=== PATIENT | male | born 1985 | race Caucasian/White ===

== ENCOUNTER 2016-08-19 01:01 | Emergency (ER) | payer SELFPAY ==
[~2016-08-19] VITALS: Ht 200.7 cm; Wt 54.4 kg
[2016-08-19 01:22] VITALS: BP 129/73
== END 2016-08-19 04:42 | disposition left against medical advice (07) ==
LOC: M ED 03:44
DX: S01.91XA Laceration without foreign body of unspecified part of head, initial encounter (principal); W22.8XXA Striking against or struck by other objects, initial encounter; Y92.098 Other place in other non-institutional residence as the place of occurrence of the external cause; Y93.89 Activity, other specified; Y99.8 Other external cause status

== ENCOUNTER 2016-11-23 10:32 | Emergency (ER) | payer SELFPAY ==
[~2016-11-23] VITALS: Ht 172.7 cm; Wt 59.0 kg
[2016-11-23] MEDS ORDERED: NORCO, ANEXSIA 5/325MG TABLET (HYDROcodone/ACETAMINOPHEN) PO ONE (10:45)
[2016-11-23] MEDS ORDERED: ADACEL/BOOSTRIX VACCINE (DIPHTH/PERTUSS/ACELL/TETANUS)0.5ML SYR (90715) IM ONE (10:45)
[2016-11-23 10:47] VITALS: BP 109/66
--- NOTE | 2016-11-23 11:16 | REP ---
CT Head without contrast HISTORY: Trauma COMPARISON: 08/19/2016 There is no intraparenchymal hemorrhage, acute infarct, mass or midline shift. The ventricular system is normal in appearance. There is no extra cerebral collection. There is no fracture. The visualized sinuses are clear. IMPRESSION: There is no intracranial lesion. Signed by Simon Turcios MD 11/23/2016 11:07 A
--- NOTE | 2016-11-23 11:19 | REP ---
CT cervical spine without contrast HISTORY: Trauma COMPARISON: 11/24/2015 There is no acute fracture or subluxation. There is no disc bulge or herniation. The spinal canal and neural foramina are patent. The intervertebral discs and vertebral bodies are normal in height. IMPRESSION: There is no acute fracture or subluxation. Signed by Simon Turcios MD 11/23/2016 11:11 A
--- NOTE | 2016-11-23 11:38 | REP ---
RIGHT FOREARM, TWO VIEWS: There is no evidence of an acute fracture, dislocation or intrinsic bone disease. IMPRESSION: No fracture or dislocation. Signed by Ritchie Rico MD 11/23/2016 05:21 P
--- NOTE | 2016-11-23 11:38 | REP ---
RIGHT ELBOW, FOUR VIEWS: There is no evidence of an acute fracture, dislocation or intrinsic bone disease. IMPRESSION: No fracture or dislocation. Signed by Ritchie Rico MD 11/23/2016 05:20 P
--- NOTE | 2016-11-23 11:40 | REP ---
RIGHT HAND: Four views of the right hand are performed. No acute fracture or dislocation is seen. There is an old fracture of the ulnar styloid process. The joint spaces appear unremarkable. IMPRESSION: Old fracture ulnar styloid process with out evidence of acute fracture. Signed by Ritchie Rico MD 11/23/2016 05:21 P
== END 2016-11-23 12:10 | disposition left against medical advice (07) ==
LOC: M ED 11:18
DX: S00.81XA Abrasion of other part of head, initial encounter (principal); V13.4XXA Pedal cycle driver injured in collision with car, pick-up truck or van in traffic accident, initial encounter; Y92.410 Unspecified street and highway as the place of occurrence of the external cause; Y93.55 Activity, bike riding; Y99.8 Other external cause status

== ENCOUNTER 2016-11-25 13:44 | Emergency (ER) | payer SELFPAY ==
[~2016-11-25] VITALS: Ht 167.6 cm; Wt 59.1 kg
[2016-11-25 13:47] VITALS: BP 116/94
== END 2016-11-25 14:55 | disposition left against medical advice (07) ==
LOC: M ED 14:51
DX: S09.90XA Unspecified injury of head, initial encounter (principal); W19.XXXA Unspecified fall, initial encounter; Y92.89 Other specified places as the place of occurrence of the external cause; Y93.89 Activity, other specified; Y99.8 Other external cause status; Z53.29 Procedure and treatment not carried out because of patient's decision for other reasons

== ENCOUNTER 2016-11-26 07:09 | Emergency (ER) | payer SELFPAY | END 2016-11-26 08:03 | disposition left against medical advice (07) | LOC: M ED 07:32 | DX: R51 Headache (principal); Z53.29 Procedure and treatment not carried out because of patient's decision for other reasons ==

== ENCOUNTER 2016-12-10 06:12 | Emergency (ER) | payer SELFPAY ==
[~2016-12-10] VITALS: Ht 170.2 cm; Wt 59.0 kg
[2016-12-10] MEDS ORDERED: FIORICET TAB PO ONE (07:30)
--- NOTE | 2016-12-10 07:53 | REP ---
Clinical: Headache with recent trauma . Comparison: 11/23/2016 . Findings: The ventricles, sulci, and cisterns are normal in position and appearance. Rico-white differentiation is maintained. No acute intracranial hemorrhage, mass/mass effect, pathology or trauma/injury. No evidence for acute infarction. No extra-axial fluid collection. Calvarium is intact. Paranasal sinuses and mastoid air cells are clear. Impression: Normal noncontrast head CT. No evidence for acute intracranial pathology or trauma/injury. Signed by Cristian Underwood MD 12/10/2016 07:45 A
[2016-12-10 07:56] VITALS: BP 107/66
[2016-12-10] MEDS ORDERED: FIOR1CAP PO (08:09)
== END 2016-12-10 08:19 | disposition home or self-care (01) ==
LOC: M ED 06:12
DX: S09.90XA Unspecified injury of head, initial encounter (principal); F51.5 Nightmare disorder; F17.210 Nicotine dependence, cigarettes, uncomplicated; W22.09XA Striking against other stationary object, initial encounter; Y92.89 Other specified places as the place of occurrence of the external cause; Y93.89 Activity, other specified; Y99.9 Unspecified external cause status

== ENCOUNTER 2018-12-31 10:48 | Emergency (ER) | payer MEDICAID, SELFPAY ==
[~2018-12-31] VITALS: Ht 170.2 cm; Wt 65.9 kg
[~2018-12-31 10:48] MED LIST: FIOR1CAP PO
[2018-12-31] MEDS ORDERED: NS 1,000 ML IV ONE (11:30)
[2018-12-31 11:55] LABS: BASO % 0.2 % (0.0-1.0); EOS # 0.2 10^3/uL (0.0-0.50); EOS % 1.4 % (0.0-3.0); HEMATOCRIT 39.4 % (42.0-52.0); HEMOGLOBIN 13.4 g/dl (13.5-17.5); LYMPH % 6.5 % (24.0-44.0); MEAN CORPUSCULAR HEMOGLOBIN 32.1 pg (27.0-33.0); MEAN CORPUSCULAR VOLUME 94.3 fl (80.0-96.0); MONO # 1.1 10^3/uL (0.0-0.8); MONO % 7.6 % (0.0-5.0); NEUTROPHILS # 12.4 10^3/uL (1.8-7.7); NEUTROPHILS % 83.9 % (36.0-66.0); PLATELET COUNT, AUTOMATED 232 10^3/uL (150-450); RED BLOOD COUNT 4.18 10^6/uL (4.30-6.10); WHITE BLOOD COUNT 14.8 10^3/uL (4.0-10.0)
[2018-12-31 12:14] LABS: BLOOD UREA NITROGEN 13 MG/DL (7-18); C REACTIVE PROTEIN QUANTITATIV 9.19 MG/DL (0.00-0.30); CARBON DIOXIDE LEVEL 26 MEQ/L (21-32); CHLORIDE LEVEL 108 MEQ/L (98-107); CREATININE FOR GFR 0.73 MG/DL (0.70-1.30); GLOMERULAR FILTRATION RATE > 60.0 (>60); GLUCOSE, FASTING 117 MG/DL (70-100); POTASSIUM SERUM 4.1 MEQ/L (3.5-5.1); SODIUM LEVEL 140 MEQ/L (136-145)
[2018-12-31 12:40] LABS: ERYTHROCYTE SEDIMENTATION RATE 49 mm/hr (0-15)
[2018-12-31] MEDS ORDERED: ISOVUE-370 76% 100ML VIAL (Q9967) As Ordered ONE (12:51)
--- NOTE | 2018-12-31 14:37 | REP ---
CT MAXILLOFACIAL REGION WITH IV CONTRAST: CT maxillofacial region performed in the axial plane following the intravenous administration of 75 mL Isovue 370. Sagittal and coronal reconstruction images are performed. Left facial soft tissues demonstrate diffuse edematous change and findings of inflammation and infection. Multiple locules of air and fluid are seen at the level of the inferior maxilla. There is a dominant focal 2 cm air and fluid collection along the lateral margin of the left maxilla at its inferior aspect consistent with an abscess. The inflammation extends into the left submandibular region. The superior extent is in the left periorbital region. There is no intraorbital extension. There is mild mucosal thickening in the left maxillary and ethmoid sinuses. No air fluid levels are seen in the paranasal sinuses. The mastoid air cells are clear. Globes are intact. There is mild reactive adenopathy on the left in the region of the posterior inferior mandible and along the carotid and jugular vessels. Airway is widely patent. There is no osseous destruction. IMPRESSION: Left facial cellulitis extending from the left orbit into the left submandibular region. There appear to be phlegmonous changes with tiny locules of air. There is one dominant locule of air and fluid consistent with a focal abscess at the lateral inferior margin of the left maxilla measuring 2 cm in diameter. There is mild reactive adenopathy in the left submandibular region and adjacent jugular chain. There is mild mucosal thickening in the left maxillary and ethmoid sinuses. Electronically Signed by Ritchie Rico MD 01/01/2019 11:08 A
[2018-12-31] MEDS ORDERED: CLINDAMYCIN 900 MG in APPROPRIATE DILUENT 1 EA IV ONE (15:00)
[2018-12-31] MEDS ORDERED: CLIN150C14 PO (15:08)
[2018-12-31 16:11] VITALS: BP 129/74
== END 2018-12-31 16:18 | disposition home or self-care (01) ==
LOC: M ED 10:48
DX: K04.7 Periapical abscess without sinus (principal); K02.9 Dental caries, unspecified; R68.84 Jaw pain; K08.89 Other specified disorders of teeth and supporting structures; Z72.0 Tobacco use; Z53.21 Procedure and treatment not carried out due to patient leaving prior to being seen by health care provider
CPT/HCPCS: 70487; 80048; 85025; 85652; 86140; 87040; 96360; 96361; 96365; 99284; Q9967

== ENCOUNTER 2020-10-26 00:18 | Emergency (ER) | payer MEDICAID, OTHER ==
[~2020-10-26] VITALS: Ht 172.7 cm; Wt 68.2 kg
[~2020-10-26 00:18] MED LIST changes: +CLIN150C15 PO
[2020-10-26 01:24] LABS: HEMATOCRIT 37.2 % (42.0-52.0); HEMOGLOBIN 12.6 g/dl (13.5-17.5); MEAN CORPUSCULAR HEMOGLOBIN 31.8 pg (27.0-33.0); MEAN CORPUSCULAR HGB CONC 33.9 g/dl (32.0-36.5); MEAN CORPUSCULAR VOLUME 93.9 fl (80.0-96.0); PLATELET COUNT, AUTOMATED 325 10^3/uL (150-450); RED BLOOD COUNT 3.96 10^6/uL (4.30-6.10)
[2020-10-26 01:50] LABS: ACETAMINOPHEN LEVEL < 2.0 UG/ML (10.0-30.0); ALBUMIN 4.1 GM/DL (3.2-5.2); ALT/SGPT 50 U/L (12-78); BILIRUBIN,DIRECT 0.2 MG/DL (0.0-0.2); BILIRUBIN,TOTAL 0.5 MG/DL (0.2-1.0); BLOOD UREA NITROGEN 20 MG/DL (7-18); CALCIUM LEVEL 9.1 MG/DL (8.5-10.1); CARBON DIOXIDE LEVEL 25 MEQ/L (21-32); CHLORIDE LEVEL 105 MEQ/L (98-107); CREATININE FOR GFR 0.94 MG/DL (0.70-1.30); ETHYL ALCOHOL (ETHANOL) 0.004 % (0.000-0.010); GLOMERULAR FILTRATION RATE > 60.0 (>60); GLUCOSE, FASTING 141 MG/DL (70-100); POTASSIUM SERUM 3.9 MEQ/L (3.5-5.1); SALICYLATE LEVEL < 1.7 MG/DL (5.0-30.0); SODIUM LEVEL 139 MEQ/L (136-145)
[2020-10-26 03:56] LABS: AMPHETAMINES LEVEL URINE POSITIVE (NEGATIVE); BARBITURATES URINE NEGATIVE (NEGATIVE); BENZODIAZEPINES URINE NEGATIVE (NEGATIVE); CANNABINOIDS URINE POSITIVE (NEGATIVE); COCAINE METABOLITE URINE NEGATIVE (NEGATIVE); METHADONE URINE NEGATIVE (NEGATIVE); OPIATES URINE NEGATIVE (NEGATIVE); PHENCYCLIDINE URINE NEGATIVE (NEGATIVE)
[2020-10-26] MEDS ORDERED: ACETAMINOPHEN TAB 650MG DOSE (2X325MG) PO ONE (08:55)
[2020-10-26 11:05] VITALS: BP 124/82
== END 2020-10-26 11:11 | disposition home or self-care (01) ==
LOC: M ED 00:18
DX: Z04.6 Encounter for general psychiatric examination, requested by authority (principal); F19.929 Other psychoactive substance use, unspecified with intoxication, unspecified; F17.210 Nicotine dependence, cigarettes, uncomplicated

== ENCOUNTER 2021-08-17 12:21 | Emergency (ER) | payer OTHER ==
[~2021-08-17] VITALS: Ht 172.7 cm; Wt 63.6 kg
[~2021-08-17 12:21] MED LIST changes: -CLIN150C15 PO; +CLIN150C17 PO
[2021-08-17 13:08] VITALS: BP 149/89
== END 2021-08-17 13:09 | disposition home or self-care (01) ==
LOC: M ED 12:21
DX: G89.29 Other chronic pain (principal); M79.671 Pain in right foot; M79.672 Pain in left foot

== ENCOUNTER 2021-08-18 13:21 | Emergency (ER) | payer OTHER ==
[~2021-08-18] VITALS: Ht 167.6 cm; Wt 81.8 kg
[2021-08-18 13:55] LABS: HEMATOCRIT 39.5 % (42.0-52.0); HEMOGLOBIN 13.7 g/dl (13.5-17.5); MEAN CORPUSCULAR HEMOGLOBIN 30.2 pg (27.0-33.0); MEAN CORPUSCULAR HGB CONC 34.7 g/dl (32.0-36.5); MEAN CORPUSCULAR VOLUME 87.2 fl (80.0-96.0); PLATELET COUNT, AUTOMATED 302 10^3/uL (150-450); RED BLOOD COUNT 4.53 10^6/uL (4.30-6.10); WHITE BLOOD COUNT 10.1 10^3/uL (4.0-10.0)
[2021-08-18 14:17] LABS: AMPHETAMINES LEVEL URINE POSITIVE (NEGATIVE); BARBITURATES URINE NEGATIVE (NEGATIVE); BENZODIAZEPINES URINE NEGATIVE (NEGATIVE); CANNABINOIDS URINE POSITIVE (NEGATIVE); COCAINE METABOLITE URINE NEGATIVE (NEGATIVE); METHADONE URINE NEGATIVE (NEGATIVE); OPIATES URINE NEGATIVE (NEGATIVE); PHENCYCLIDINE URINE NEGATIVE (NEGATIVE)
[2021-08-18 14:34] LABS: ACETAMINOPHEN LEVEL < 2.0 UG/ML (10.0-30.0); ALBUMIN 4.4 GM/DL (3.2-5.2); ALT/SGPT 141 U/L (12-78); BILIRUBIN,DIRECT 0.2 MG/DL (0.0-0.2); BILIRUBIN,TOTAL 0.8 MG/DL (0.2-1.0); BLOOD UREA NITROGEN 21 MG/DL (7-18); CALCIUM LEVEL 9.2 MG/DL (8.5-10.1); CARBON DIOXIDE LEVEL 23 MEQ/L (21-32); CHLORIDE LEVEL 104 MEQ/L (98-107); CREATININE FOR GFR 0.95 MG/DL (0.70-1.30); ETHYL ALCOHOL (ETHANOL) < 0.003 % (0.000-0.010); GLOMERULAR FILTRATION RATE > 60.0 (>60); GLUCOSE, FASTING 95 MG/DL (70-100); POTASSIUM SERUM 3.7 MEQ/L (3.5-5.1); SALICYLATE LEVEL < 1.7 MG/DL (5.0-30.0); SODIUM LEVEL 137 MEQ/L (136-145); TOTAL PROTEIN 7.9 GM/DL (6.4-8.2)
[2021-08-18] MEDS ORDERED: ACETAMINOPHEN 325 MG TAB PO ONE (18:05)
[2021-08-18 19:00] LABS: RSV AMPLIFICATION NEGATIVE (NEGATIVE)
[2021-08-18] MEDS ORDERED: HOME MED LIST COMPLETE! XX SCH (19:20)
[2021-08-18] MEDS ORDERED: OLANZapine INTRAMUSCULAR 10MG VIAL IM ONE (19:40)
[2021-08-19 08:38] VITALS: BP 122/69
== END 2021-08-19 08:41 ==
LOC: M ED 13:21
DX: Z04.6 Encounter for general psychiatric examination, requested by authority (principal); F06.2 Psychotic disorder with delusions due to known physiological condition; E11.9 Type 2 diabetes mellitus without complications; Z79.4 Long term (current) use of insulin

== ENCOUNTER 2021-09-09 07:10 | Emergency (ER) | payer MEDICAID, OTHER ==
[~2021-09-09] VITALS: Ht 172.7 cm; Wt 61.8 kg
[2021-09-09 07:11] VITALS: BP 128/82
[2021-09-09] MEDS ORDERED: IBUPROFEN 800 MG TAB PO ONE (07:45)
== END 2021-09-09 08:17 | disposition home or self-care (01) ==
LOC: M ED 07:10
DX: S90.31XA Contusion of right foot, initial encounter (principal); V18.0XXA Pedal cycle driver injured in noncollision transport accident in nontraffic accident, initial encounter; Y92.410 Unspecified street and highway as the place of occurrence of the external cause; E11.9 Type 2 diabetes mellitus without complications; F17.210 Nicotine dependence, cigarettes, uncomplicated; F12.20 Cannabis dependence, uncomplicated

== ENCOUNTER → 2022-11-13 | Outpatient (CLI) | payer OTHER | LOC: M RAD 12:09 | PROVIDERS: ATTEND Surgery | DX: S22.41XA Multiple fractures of ribs, right side, initial encounter for closed fracture (principal); X58.XXXA Exposure to other specified factors, initial encounter; Y92.9 Unspecified place or not applicable; Y93.9 Activity, unspecified; Y99.9 Unspecified external cause status ==

== ENCOUNTER 2024-07-11 21:07 | Emergency (ER) | payer MEDICAID, OTHER, SELFPAY ==
[~2024-07-11] VITALS: Ht 170.2 cm; Wt 72.6 kg
[2024-07-11 21:26] VITALS: BP 175/113; TEMP 98.2; O2SAT 100
== END 2024-07-11 22:30 | disposition left against medical advice (07) ==
LOC: M ED 21:07
DX: Z53.21 Procedure and treatment not carried out due to patient leaving prior to being seen by health care provider (principal)

== ENCOUNTER 2024-07-22 23:43 | Emergency (ER) | payer SELFPAY ==
[~2024-07-22] VITALS: Ht 170.2 cm; Wt 61.5 kg
[2024-07-22 23:51] VITALS: TEMP 97.2
[2024-07-23] MEDS: ONDANSETRON 4MG 2ML VIAL IV PRN
[2024-07-23] MEDS: NS 500 ML IV ONE (00:17)
[2024-07-23 00:37] LABS: BASO % 0.3 % (0.0-1.0); EOS # 0.2 10^3/uL (0.0-0.5); EOS % 2.6 % (0.0-3.0); HEMATOCRIT 40.3 % (42.0-52.0); HEMOGLOBIN 13.5 g/dl (13.5-17.5); LYMPH # 1.8 10^3/uL (1.5-5.0); LYMPH % 26.8 % (24.0-44.0); MEAN CORPUSCULAR HEMOGLOBIN 30.9 pg (27.0-33.0); MEAN CORPUSCULAR HGB CONC 33.5 g/dl (32.0-36.5); MEAN CORPUSCULAR VOLUME 92.2 fl (80.0-96.0); MONO # 0.5 10^3/uL (0.0-0.8); MONO % 7.5 % (2.0-8.0); NEUTROPHILS # 4.3 10^3/uL (1.5-8.5); NEUTROPHILS % 62.7 % (36.0-66.0); PLATELET COUNT, AUTOMATED 318 10^3/uL (150-450); RED BLOOD COUNT 4.37 10^6/uL (4.30-6.10); WHITE BLOOD COUNT 6.8 10^3/uL (4.0-10.0)
[2024-07-23 00:59] LABS: BLOOD UREA NITROGEN 17 MG/DL (9-23); CALCIUM LEVEL 8.7 MG/DL (8.5-10.1); CARBON DIOXIDE LEVEL 28 MMOL/L (20-31); CHLORIDE LEVEL 103 MMOL/L (98-107); CREATININE FOR GFR 0.92 MG/DL (0.70-1.30); GLOMERULAR FILTRATION RATE > 60.0 (>60); GLUCOSE, FASTING 194 MG/DL (60-100); POTASSIUM SERUM 3.9 MMOL/L (3.5-5.1); SODIUM LEVEL 141 MMOL/L (136-145)
[2024-07-23 02:30] VITALS: BP 116/67; O2SAT 100
== END 2024-07-23 03:08 | disposition home or self-care (01) ==
LOC: EDBD 23:43 → M ED 23:43
DX: F19.10 Other psychoactive substance abuse, uncomplicated (principal); R06.81 Apnea, not elsewhere classified; F43.10 Post-traumatic stress disorder, unspecified; F90.9 Attention-deficit hyperactivity disorder, unspecified type; Z88.0 Allergy status to penicillin
CPT/HCPCS: 80048; 85025; 93005; 93041; 94760; 96360; 99285; J2405

== ENCOUNTER 2024-09-10 07:06 | Emergency (ER) | payer SELFPAY ==
[2024-09-10 07:10] VITALS: BP 127/73; TEMP 97.8; O2SAT 99
== END 2024-09-10 08:11 | disposition left against medical advice (07) ==
LOC: M ED 07:06
DX: Z53.21 Procedure and treatment not carried out due to patient leaving prior to being seen by health care provider (principal)

== ENCOUNTER 2024-12-13 09:42 | Emergency (ER) | payer SELFPAY ==
[2024-12-13] MEDS: OVERDOSE RESCUE KIT XX SCH (14:07)
[2024-12-13 14:53] VITALS: BP 109/68; TEMP 97.7; O2SAT 96
== END 2024-12-13 15:01 | disposition home or self-care (01) ==
LOC: M ED 09:42 → EDBD 09:42 → M ED 15:01
DX: F19.10 Other psychoactive substance abuse, uncomplicated (principal); Z88.0 Allergy status to penicillin

== ENCOUNTER 2024-12-25 21:02 | Emergency (ER) | payer SELFPAY ==
[~2024-12-25] VITALS: Ht 170.2 cm; Wt 63.6 kg
[2024-12-25 21:13] VITALS: TEMP 98.4
[2024-12-25 22:30] VITALS: BP 111/71; O2SAT 99
== END 2024-12-26 01:40 | disposition home or self-care (01) ==
LOC: M ED 21:02
DX: S00.81XA Abrasion of other part of head, initial encounter (principal); Y92.9 Unspecified place or not applicable; Y93.9 Activity, unspecified; Y99.9 Unspecified external cause status; F19.10 Other psychoactive substance abuse, uncomplicated; Z88.0 Allergy status to penicillin